=== PATIENT | male | born 1995 | race Caucasian/White ===

== ENCOUNTER 2017-06-09 21:56 | Emergency (ER) | payer OTHER ==
[~2017-06-09] VITALS: Ht 177.8 cm; Wt 59.0 kg
[2017-06-09 22:22] VITALS: BP_SYST 115
[2017-06-10 00:38] VITALS: BP_SYST 121
== END 2017-06-10 00:38 | disposition home or self-care (01) ==
LOC: SED 21:56
DX: S01.111A Laceration without foreign body of right eyelid and periocular area, initial encounter (principal); W22.8XXA Striking against or struck by other objects, initial encounter; Y93.01 Activity, walking, marching and hiking; Y92.89 Other specified places as the place of occurrence of the external cause; Y99.8 Other external cause status
CPT/HCPCS: 99283